=== PATIENT | female | born 1980 | race African-American/Black ===

== ENCOUNTER 2021-02-13 08:49 | Emergency (ER) | payer OTHER ==
[~2021-02-13] VITALS: Ht 170.2 cm; Wt 104.0 kg
--- NOTE | 2021-02-13 09:08 | PHYS DOC ---
Past Medical History Past Medical History: No Pertinent History Past Surgical History: Other Additional Past Surgical Histo: laparoscopy Alcohol Use: Occasionally Drug Use: None General Adult EDM: Chief Complaint: MULTIPLE COMPLAINTS HPI: HPI: Patient is a 40 year old female who presents with multiple complaints. She reports several days of chest pain, numbness and tingling on both arms hands and down to her waist, symptoms often begin when she starts her computer in the morning. She reports that she has been having a lot of stress over starting a new job, having more responsibilities. She also reports that she began experiencing vaginal bleeding today. She ended her last period a couple of days ago. She has not previously experienced irregular vaginal bleeding. She denies abdominal pain. She does report some nausea, no vomiting. She denies dizziness, diaphoresis, abdominal pain, fevers or chills, cough. Denies lower extremity pain or swelling. She denies fall or injury. She has no active chest pain at present. She does acknowledge that she does not sleep well at night, and has had significant stress related to this new job. She denies SI or HI symptoms. Review of Systems: Review of Systems: Constitutional: Denies fever or chills. [] Eyes: Denies change in visual acuity. [] HENT: Denies nasal congestion or sore throat. [] Respiratory: Denies cough or shortness of breath. [] Cardiovascular: Denies peripheral edema. Reports chest pain. GI: Denies abdominal pain. Reports nausea, no vomiting. Denies bowel habit changes. : Denies symptoms. Reports vaginal bleeding, no heavy bleeding. Musculoskeletal: Denies back pain or joint pain. [] Integument: Denies rash. [] Neurologic: Denies headache, focal weakness or sensory changes. [] Endocrine: Denies polyuria or polydipsia. [] Lymphatic: Denies swollen glands. [] Psychiatric: Admits to anxiety and panic attack symptoms related to her new job. [] Heart Score: C/O Chest Pain: Yes HEART Score for Chest Pain: HEART Score for Chest Pain Response (Comments) Value History Slighlty/Non-Suspicious 0 ECG Nonspecific Repolarizatio 1 Age < 45 0 Risk Factors 1 or 2 Risk Factors 1 Troponin < Normal Limit 0 Total 2 Risk Factors: Risk Factors: DM, Current or recent (<one month) smoker, HTN, HLP, family history of CAD, obesity. Risk Scores: Score 0 - 3: 2.5% MACE over next 6 weeks - Discharge Home Score 4 - 6: 20.3% MACE over next 6 weeks - Admit for Clinical Observation Score 7 - 10: 72.7% MACE over next 6 weeks - Early Invasive Strategies Allergies: Allergies: Allergies Coded Allergies Type Severity Reaction Last Updated Verified naproxen Allergy Intermediate hives 08/18/13 Yes Physical Exam: PE: Constitutional: Well developed, well nourished, no acute distress, non-toxic appearance. [] HENT: Normocephalic, atraumatic, bilateral external ears normal, oropharynx moist, no oral exudates, nose normal. [] Eyes: PERRL, EOMI, conjunctiva normal, no discharge. [] Neck: Normal range of motion, no tenderness, supple, no stridor. Trachea midline, no JVD. Cardiovascular:Heart rate regular rhythm, perfused appearing. +2 radial and +2 posterior tibial pulses bilaterally. Lungs & Thorax: Bilateral breath sounds clear to auscultation [] Abdomen: Abdomen soft, nondistended, nontender to palpation. Skin: Warm, dry, no erythema, no rash. [] Back: No tenderness, no CVA tenderness. [] Extremities: No tenderness, no cyanosis, no clubbing, ROM intact, no edema. No calf tenderness. Neurologic: Alert and oriented X 3, normal motor function, normal sensory function, no focal deficits noted. [] Psychologic: Anxious but she is very cooperative and pleasant. Denies SI or HI.] EKG: EKG: EKG is interpreted at 0912 Rhythm is sinus Rate is 78 bpm [place] is normal No STEMI EKG is interpreted at 0926 Rhythm is sinus Rate is 75 bpm [place] is normal No STEMI Radiology/Procedures: Radiology/Procedures: IMAGING REPORT Signed PATIENT: NATALIIA GREEN ACCOUNT: [id number] : 1980 LOCATION: ER AGE: 40 SEX: F EXAM STATUS: PRE ER ORD. PHYSICIAN: CHACHA PANDA DO REASON: chest pain PROCEDURE: PORTABLE CHEST 1V XR CHEST 1V INDICATION: chest pain COMPARISON STUDY: 05/30/2015. FINDINGS: Lungs: Normal lung volume. No pulmonary mass or consolidation. The tracheobronchial tree and hilar structures are normal. Pleura: No pleural effusion or pneumothorax. Heart and Mediastinum: The cardiomediastinal silhouette is normal. The great vessels of the thorax are normal. Bones and Soft Tissues: The bones and soft tissues are within normal limits. IMPRESSION: No acute cardiopulmonary process. Electronically signed by: Brianna Almanzar MD (02/13/2021 10:43 AM) [id number] DICTATED and SIGNED BY: BRIANNA ALMANZAR MD DATE: 02/13/21 [id number] 0 Course & Med Decision Making: Course & Med Decision Making Pertinent Labs and Imaging studies reviewed. (See chart for details) I discussed the findings, differential diagnosis and plan of care with the patient. Her emergency department work-up is unremarkable for acute life- threatening process. She denies any return of any pain. She admits that her symptoms seem to be related to anxiety issues and stress regarding her new job. She has had intermittent symptoms for several days, troponin is negative. No acute ischemia on EKG. No indication for further invasive exams or admission at this time, based on current presentation. I did tell her to follow-up with her primary care physician, she may wish to consider outpatient cardiology consultation if symptoms continue. 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 She may require maintenance medication for generalized anxiety disorder, as her symptoms may be adversely affecting her day-to-day functioning, especially at work. She is amenable to this idea. She is comfortable with the plan for discharge home. Return precautions are given Dragon Disclaimer: Dragon Disclaimer: This electronic medical record was generated, in whole or in part, using a voice recognition dictation system. Departure Departure Impression: Primary Impression: Atypical chest pain Additional Impressions: Abnormal vaginal bleeding Anxiety Disposition: HOME / SELF CARE / HOMELESS Condition: STABLE Referrals: SMITH MCELROY APRN (PCP) Patient Instructions: Abnormal Uterine Bleeding, Anxiety and Panic Attacks, Chest Pain (Nonspecific) Additional Instructions: Use the medications as directed/as needed. Please contact your primary care physician for further follow-up and further discussion of your symptoms. It may be helpful for you to be on a maintenance medication for generalized anxiety, please discuss this with your doctor. Please return to the ER for more severe pain, shortness of breath, coughing up blood, passing out, focal weakness, severe or uncontrolled vomiting with dehydration or for any other concerns. Scripts Hydroxyzine Pamoate (HYDROXYZINE PAMOATE) 25 Mg Capsule 1 CAP PO TID for anxiety, #20 CAP Prov: CHACHA PANDA DO 02/13/21 Ondansetron Hcl (ZOFRAN) 4 Mg Tablet 4 MG PO PRN TID PRN for VOMITING, #20 TAB nausea/vomiting Prov: CHACHA PANDA DO 02/13/21 CHACHA PANDA DO Feb 13, 2021 09:08
[2021-02-13 09:38] LABS: BILIRUBIN,URINE NEGATIVE (NEG); CLARITY,URINE CLEAR; COLOR,URINE YELLOW; NITRITE,URINE NEGATIVE (NEG); PROTEIN,URINE NEGATIVE (NEG-TRACE); UROBILINOGEN,URINE 0.2 mg/dL (0.2 mg/dL)
[2021-02-13] MEDS ORDERED: IV NORMAL SALINE 1000ML BAG 1,000 ML IV ONE (09:45)
[2021-02-13 09:48] LABS: U PREG PATIENT NEGATIVE (NEG)
[2021-02-13 09:50] LABS: BACTERIA,URINE 0 /HPF (0-FEW); RBC,URINE TNTC /HPF (0-2); WBC,URINE OCC /HPF (0-4)
[2021-02-13 10:09] LABS: BASO % 1 % (0-3); EOS # 0.1 x10^3/uL (0.0-0.7); EOS % 1 % (0-3); HEMATOCRIT 37.8 % (36.0-47.0); HEMOGLOBIN 12.2 g/dL (12.0-15.5); LYMPH # 1.9 x10^3/uL (1.0-4.8); LYMPH % 32 % (24-48); MEAN CORPUSCULAR HEMOGLOBIN 29 pg (25-35); MEAN CORPUSCULAR HGB CONC 32 g/dL (31-37); MEAN CORPUSCULAR VOLUME 90 fL (79-100); MONO # 0.4 x10^3/uL (0.0-1.1); MONO % 7 % (0-9); NEUT # 3.5 x10^3/uL (1.8-7.7); NEUT % 59 % (31-73); PLATELET COUNT 236 x10^3/uL (140-400); RED BLOOD COUNT 4.22 x10^6/uL (3.50-5.40); RED CELL DISTRIBUTION WIDTH 15.1 % (11.5-14.5)
[2021-02-13 10:14] LABS: CALCIUM 8.5 mg/dL (8.5-10.1); CREATININE 0.7 mg/dL (0.6-1.0); POTASSIUM 3.4 mmol/L (3.5-5.1)
[2021-02-13] MEDS ORDERED: ONDANSETRON PF 4 MG/2 ML VIAL. IVP ONE (10:15)
[2021-02-13 10:20] LABS: ALBUMIN 3.4 g/dL (3.4-5.0); ALBUMIN/GLOBULIN RATIO 0.9 (1.0-1.7); MAGNESIUM 1.9 mg/dL (1.8-2.4); TOTAL BILIRUBIN 0.3 mg/dL (0.2-1.0); TOTAL PROTEIN 7.4 g/dL (6.4-8.2)
--- NOTE | 2021-02-13 10:46 | RAD ---
XR CHEST 1V INDICATION: chest pain COMPARISON STUDY: 05/30/2015. FINDINGS: Lungs: Normal lung volume. No pulmonary mass or consolidation. The tracheobronchial tree and hilar st ructures are normal. Pleura: No pleural effusion or pneumothorax. Heart and Mediastinum: The cardiomediastinal silhouette is normal. The great vessels of the thorax ar e normal. Bones and Soft Tissues: The bones and soft tissues are within normal limits. IMPRESSION: No acute cardiopulmonary process. Electronically signed by: Marcos Almanzar MD (02/13/2021 10:43 AM) [id number]
[2021-02-13 11:35] VITALS: BP 168/9
[2021-02-13] MEDS ORDERED: ONDA4TAB7 PO (12:05)
[2021-02-13] MEDS ORDERED: HYDR25CA75 PO (12:05)
--- NOTE | 2021-02-13 23:02 | EKG ---
[facility] [address] [place] [address] Test Date: 2021-02-13 Test Time: 09:24:02 Pat Name: NATALIIA GREEN Department: Room: Gender: F Cash Management Clerk: : 1980 Requested By: CHACHA PANDA Order Number: [id number] Reading MD: Godwin Alejandra Measurements Intervals [place] Rate: 75 P: 148 MD: 146 QRS: 138 QRSD: 94 T: 169 QT: 402 QTc: 452 Interpretive Statements SINUS RHYTHM T ABNORMALITY IN HIGH LATERAL LEADS Electronically Signed On 02-15-2021 12:51:22 [employer] by Godwin Alejandra
== END 2021-02-13 12:19 | disposition home or self-care (01) ==
LOC: ER 08:49
DX: R07.89 Other chest pain (principal); N93.9 Abnormal uterine and vaginal bleeding, unspecified; F41.9 Anxiety disorder, unspecified; Z88.5 Allergy status to narcotic agent
CPT/HCPCS: 36415; 71045; 80053; 81001; 81025; 83690; 83735; 83880; 84484; 85025; 85379; 93005; 96361; 96374; 99285; J2405; J7030